=== PATIENT | male | born 1940 | race Caucasian/White ===

== ENCOUNTER 2018-05-31 16:57 | Emergency (ER) | payer OTHER, MEDICARE ==
--- NOTE | 2018-05-31 17:16 | ED Physician Documentation ---
PD HPI CHEST PAIN - Stated complaint Stated Complaint: SOA - Chief complaint Chief Complaint: Resp - History obtained from History obtained from: Patient - History of Present Illness Timing - onset: Today (This is a 78-year-old gentleman who is a 6 years out from a porcine aortic valve replacement, he is not anticoagulated. He traveled by car yesterday. Today he was inexplicably short of breath while walking up a hill. This is never happened to him before. There is no associated chest pain, pedal edema, or calf pain.) Review of Systems Ten Systems: 10 systems reviewed and negative Constitutional: denies: Fever, Chills Nose: denies: Rhinorrhea / runny nose, Congestion Cardiac: denies: Chest pain / pressure, Palpitations, Pedal edema, Calf pain Respiratory: reports: Dyspnea, Cough (mild) PD PAST MEDICAL HISTORY - Past Medical History Past Medical History: Yes Cardiovascular: Hypertension, Valve disorder (porcine aortic valve replacement 2012, ) - Present Medications Home Medications: Ambulatory Orders Medication Instructions Recorded Confirmed Levothyroxine [Synthroid] 125 mcg PO QDAC 05/31/18 05/31/18 Rosuvastatin Calcium 5 mg PO DAILY 05/31/18 05/31/18 amLODIPine [Norvasc] 5 mg PO DAILY 05/31/18 05/31/18 - Allergies Allergies/Adverse Reactions: Allergies Allergy/AdvReac Type Severity Reaction Status Date / Time Sulfa (Sulfonamide Allergy Unknown Verified 05/31/18 17:02 Antibiotics) - Living Situation Living Situation: reports: With spouse/s.o. - Social History Does the pt smoke?: No Does the pt drink ETOH?: No Does the pt have substance abuse?: No - Family History Family history: reports: Non contributory PD ED PE NORMAL - Vitals Vital signs reviewed: Yes - General General: Alert and oriented X 3, No acute distress - HEENT HEENT: Pharynx benign - Neck Neck: Supple, no meningeal sign, No bony TTP, No JVD - Cardiac Cardiac: Other (Regular but frequent extrasystoles, very loud systolic murmur, 4 out of 6 radiating up) - Respiratory Respiratory: No respiratory distress, Clear bilaterally - Abdomen Abdomen: Soft, Non tender - Back Back: No CVA TTP, No spinal TTP - Derm Derm: Normal color, Warm and dry - Extremities Extremities: No edema, No calf tenderness / cord - Neuro Neuro: Alert and oriented X 3, Normal speech Results - Vitals Vitals: Vital Signs - 24 hr 05/31/18 05/31/18 05/31/18 17:00 17:27 18:03 Temperature 36.8 C Heart Rate 58 L 70 Respiratory 20 19 Rate Blood Pressure 124/50 L 115/56 L Blood Pressure 117/58 L [Right] O2 Saturation 98 115 H 05/31/18 18:59 Temperature Heart Rate 56 L Respiratory 19 Rate Blood Pressure 117/69 Blood Pressure [Right] O2 Saturation 96 Oxygen O2 Source Room air - EKG (time done) 1711 Rate: Rate (enter#) (81) Rhythm: NSR (With frequent PACs And what frequent PVCs) [place]: Normal Intervals: Normal NE QRS: Normal Ischemia: No: ST elevation c/w ischemia Computer interpretation: Agree with computer - Labs Labs: Laboratory Tests 05/31/18 05/31/18 05/31/18 17:40 17:40 17:40 WBC 7.8 RBC 4.28 L Hgb 13.3 L Hct 38.8 L MCV 90.7 MCH 31.1 H MCHC 34.3 RDW 13.2 Plt Count 75 L MPV 11.0 Neut # (Auto) 4.6 Lymph # (Auto) 2.2 [place] # (Auto) 0.8 Eos # (Auto) 0.1 Baso # (Auto) 0.1 Absolute Nucleated RBC 0.00 Nucleated RBC % 0.1 PT 15.2 H INR 1.3 H Sodium 137 Potassium 3.7 Chloride 103 Carbon Dioxide 24 Anion Gap 10.0 BUN 18 Creatinine 0.8 Estimated GFR (MDRD) 93 Glucose 99 Calcium 9.1 Total Bilirubin 2.6 H AST 29 ALT 25 Alkaline Phosphatase 63 Troponin I B-Natriuretic Peptide Total Protein 6.6 L Albumin 3.9 Globulin 2.7 Albumin/Globulin Ratio 1.4 Lipase 25 05/31/18 05/31/18 17:40 17:40 WBC RBC Hgb Hct MCV MCH MCHC RDW Plt Count MPV Neut # (Auto) Lymph # (Auto) [place] # (Auto) Eos # (Auto) Baso # (Auto) Absolute Nucleated RBC Nucleated RBC % PT INR Sodium Potassium Chloride Carbon Dioxide Anion Gap BUN Creatinine Estimated GFR (MDRD) Glucose Calcium Total Bilirubin AST ALT Alkaline Phosphatase Troponin I < 0.04 B-Natriuretic Peptide 503 H Total Protein Albumin Globulin Albumin/Globulin Ratio Lipase - Rads (name of study) CT Chest Angio Radiology: EMP read contemporaneously (No PE, basilar interstitial opacities and trace pleural effusion suggesting mild CHF.) PD MEDICAL DECISION MAKING - ED course ED course: This is a 78-year-old gentleman who is status post remote porcine aortic valve replacement who presents with acute dyspnea on exertion today without associated clinical evidence of fluid overload on exam or chest pain. His biomarkers are negative. He is often in supraventricular bigeminy on tracing. He was evaluated for PE given recent significant car travel and this was negative but he does have small pleural effusions and very mild pulmonary edema. I discussed the case with the purchasing administrative assistant on-call for his, Dr. Palacios who recommended he call the office tomorrow and they will obtain an expedited echocardiogram. Departure - Departure Disposition: 01 Home, Self Care Clinical Impression: Mild congestive heart failure, Valvular heart disease Condition: Good Record reviewed to determine appropriate education?: Yes Comments: Eat a low-salt diet, less than 2-3 g of sodium a day. Call Dr. Palacios's office tomorrow, I spoke with his partner kailey and he agrees you need an expedited echocardiogram. His number is [phone]. Return for increasing shortness of breath or shortness of breath at rest. Or any chest pain. If you have any questions kailey my phone number is [phone].
[2018-05-31 18:02] LABS: BASOPHILS # (AUTO) 0.1 10^3/uL (0.0-0.1); BASOPHILS % (AUTO) 0.9 %; EOSINOPHILS # (AUTO) 0.1 10^3/uL (0.0-0.7); EOSINOPHILS % (AUTO) 1.3 %; HGB - HEMOGLOBIN 13.3 g/dL (14.0-18.0); LYMPHOCYTES # (AUTO) 2.2 10^3/uL (1.5-3.5); LYMPHOCYTES % (AUTO) 28.7 %; MEAN CORPUSCULAR HEMOGLOBIN 31.1 pg (27.0-31.0); MEAN CORPUSCULAR HGB CONC 34.3 g/dL (32.0-36.0); MEAN CORPUSCULAR VOLUME 90.7 fL (80.0-94.0); MONOCYTES # (AUTO) 0.8 10^3/uL (0.0-1.0); MONOCYTES % (AUTO) 10.3 %; NEUTROPHILS # (AUTO) 4.6 10^3/uL (1.5-6.6); NEUTROPHILS % (AUTO) 58.8 %; PLT - PLATELET COUNT 75 10^3/uL (130-450); RED BLOOD COUNT 4.28 10^6/uL (4.70-6.10); RED CELL DISTRIBUTION WIDTH 13.2 % (12.0-15.0); WHITE BLOOD COUNT 7.8 x10^3/uL (4.8-10.8)
[2018-05-31 18:15] LABS: INR 1.3 (0.8-1.2); PT - PROTHROMBIN TIME 15.2 secs (9.9-12.6)
[2018-05-31] MEDS ORDERED: IOVERSOL 320 100 ML VIAL IVP ONE ×2 (18:15→18:42)
[2018-05-31 18:18] LABS: ALBUMIN 3.9 g/dL (3.2-5.5); ALBUMIN/GLOBULIN RATIO 1.4 (1.0-2.2); BILIRUBIN,TOTAL 2.6 mg/dL (0.2-1.0); CALCIUM 9.1 mg/dL (8.5-10.3); CREATININE 0.8 mg/dL (0.6-1.2); TOTAL PROTEIN 6.6 g/dL (6.7-8.2)
--- NOTE | 2018-05-31 19:08 | CT Report ---
Reason: PE study, dyspnea Procedure Date: 05/31/2018 Accession Number: [id number] / [id number] Procedure: CT - ANGIO CHEST W/WO CPT Code: FULL RESULT: EXAM: CT ANGIOGRAM CHEST EXAM DATE: 05/31/2018 06:29 PM. CLINICAL HISTORY: Dyspnea. COMPARISON: None. TECHNIQUE: Routine helical imaging was performed through the chest in the pulmonary arterial phase. IV Contrast: 80 cc Optiray 320 IV. Reconstructions: Coronal 3-D MIP reconstructions.Sagittal and coronal. In accordance with CT protocol optimization, one or more of the following dose reduction techniques were utilized for this exam: automated exposure control, adjustment of mA and/or KV based on patient size, or use of iterative reconstructive technique. FINDINGS: Pulmonary Arteries: Diagnostic quality: Adequate through the segmental arteries. Negative for an acute pulmonary embolism. The main pulmonary artery is normal in size Lungs/Pleura: There are mild patchy bilateral lower lobe groundglass opacities. There is mild to moderate bilateral lower lobe interlobular septal thickening. There is peripheral atelectasis. There are trace pleural effusions. Mediastinum: There are findings of previous sternotomy and aortic valve replacement. There is no pericardial effusion. No mediastinal or hilar lymphadenopathy. Thoracic Aorta: The aorta is not yet opacified with contrast. No thoracic aortic aneurysm. Upper Abdomen: Unremarkable. Other: None. IMPRESSION: 1. Negative for acute pulmonary embolism. 2. Basilar interstitial opacities and trace pleural effusions suggesting mild CHF. RADIA
[2018-05-31 19:37] VITALS: BP 126/69
== END 2018-05-31 19:40 | disposition home or self-care (01) ==
LOC: ED 16:57
DX: I11.0 Hypertensive heart disease with heart failure (principal); I50.9 Heart failure, unspecified; I38 Endocarditis, valve unspecified; R94.31 Abnormal electrocardiogram [ECG] [EKG]; Z95.4 Presence of other heart-valve replacement
CPT/HCPCS: 36415; 71275; 80053; 83690; 83880; 84484; 85025; 85610; 93005; 99284; Q9967

== ENCOUNTER 2018-11-15 08:14 | Emergency (ER) | payer OTHER, MEDICARE ==
[2018-11-15 08:19] VITALS: BP 156/90
--- NOTE | 2018-11-15 08:36 | ED Physician Documentation ---
History of Present Illness - Stated complaint Stated Complaint: HIGH BLOOD PRESSURE - Chief complaint Chief Complaint: Cardiac - History obtained from History obtained from: Patient, Family - History of Present Illness Pain level max: 0 Pain level now: 0 Improved by: Nothing Worsened by: Nothing - Additonal information Additional information: Patient is approximately 3 to 4 months status post a TAVR. He states that for the past few mornings when he first gets up he feels slightly lightheaded. Checked his blood pressure today noted to be higher than usual. Had not taken his blood pressure medications yet today. He walks several times a day without any difficulty. No chest pain. No dyspnea. Saw his mud jack nozzle worker 3 weeks ago and had a reportedly normal appearing echocardiogram. He is currently asymptomatic. He states that they did decrease his amlodipine from 5 mg to 2.5 mg. Review of Systems Constitutional: denies: Fever, Chills Throat: denies: Sore throat Cardiac: denies: Chest pain / pressure, Palpitations Respiratory: denies: Dyspnea, Cough GI: denies: Vomiting, Diarrhea Skin: denies: Rash Musculoskeletal: denies: Neck pain, Back pain Neurologic: denies: Headache PD PAST MEDICAL HISTORY - Past Medical History Past Medical History: Yes Cardiovascular: Hypertension, Valve disorder - Past Surgical History General: Hiatal hernia repair - Present Medications Home Medications: Ambulatory Orders Medication Instructions Recorded Confirmed Levothyroxine [Synthroid] 125 mcg PO QDAC 05/31/18 05/31/18 Rosuvastatin Calcium 5 mg PO DAILY 05/31/18 05/31/18 amLODIPine [Norvasc] 5 mg PO DAILY 05/31/18 05/31/18 - Allergies Allergies/Adverse Reactions: Allergies Allergy/AdvReac Type Severity Reaction Status Date / Time Sulfa (Sulfonamide Allergy Unknown Verified 11/15/18 08:19 Antibiotics) - Social History Does the pt smoke?: No Smoking Status: Never smoker Does the pt drink ETOH?: No Does the pt have substance abuse?: No - Immunizations Immunizations are current?: Yes PD ED PE NORMAL - Vitals Vital signs reviewed: Yes - General General: Alert and oriented X 3, No acute distress, Well developed/nourished - HEENT HEENT: Moist mucous membranes - Neck Neck: Supple, no meningeal sign - Cardiac Cardiac: RRR, Other (4 out of 6 holosystolic murmur) - Respiratory Respiratory: No respiratory distress, Clear bilaterally - Abdomen Abdomen: Soft, Non tender, Non distended - Derm Derm: Warm and dry, No rash - Extremities Extremities: No edema - Neuro Neuro: Alert and oriented X 3 - Psych Psych: Normal mood, Normal affect Results - Vitals Vitals: Vital Signs - 24 hr 11/15/18 08:17 Temperature 36.4 C L Heart Rate 62 Respiratory 20 Rate Blood Pressure 156/90 H O2 Saturation 100 Oxygen O2 Source Room air - EKG (time done) 0824 Rate: Rate (enter#) (52) Rhythm: NSR Intervals: Normal MS, LBBB PD MEDICAL DECISION MAKING - ED course Complexity details: reviewed results, considered differential, d/w patient, d/w family ED course: 78-year-old male with asymptomatic hypertension today. Currently is fully asymptomatic. Has not had any chest pain, palpitations, dyspnea. Reportedly normal echocardiogram 3 weeks ago. We will have him follow-up with his doctor closely for further care. Patient counseled regarding signs and symptoms for which I believe and urgent re-evaluation would be necessary. Patient with good understanding of and agreement to plan and is comfortable going home at this time This document was made in part using voice recognition software. While efforts are made to proofread this document, sound alike and grammatical errors may occur. Departure - Departure Disposition: 01 Home, Self Care Clinical Impression: Hypertension Qualifiers: Hypertension type: unspecified Qualified Code(s): I10 - Essential (primary) hypertension Condition: Good Instructions: ED HTN Established Follow-Up: Your,doctor in 1 week [Other] Comments: Continue your medications at home. Keep a log of your blood pressures to follow-up with your doctor for further evaluation. Return if you develop chest pain, shortness of breath or any other new or worsening symptoms. Discharge Date/Time: 11/15/18 08:49
== END 2018-11-15 08:49 | disposition home or self-care (01) ==
LOC: ED 08:14
DX: I10 Essential (primary) hypertension (principal)
CPT/HCPCS: 93005; 99283; 99284

== ENCOUNTER 2022-02-02 09:57 | Emergency (ER) | payer MEDICARE, OTHER ==
--- NOTE | 2022-02-02 10:44 | XRAY Report ---
PROCEDURE: Chest 1 View X-Ray INDICATIONS: Chest pain TECHNIQUE: One view of the chest was acquired. COMPARISON: CT angiogram chest 05/31/2018 FINDINGS: Surgical changes and devices: Sternal wires. Lungs and pleura: There is an overall appearance of increased pulmonary vascularity. Mediastinum: Mediastinal contours appear normal. Heart size is enlarged. Bones and chest wall: No suspicious bony lesions. Overlying soft tissues appear unremarkable. IMPRESSION: Increased vascularity with cardiomegaly suggestive of edema. Reviewed by: Elicia Ceja MD on 02/02/2022 10:43 AM PDT Approved by: Elicia Ceja MD on 02/02/2022 10:43 AM PDT Station ID: [id number]
[2022-02-02 10:47] LABS: BASOPHILS # (AUTO) 0.1 10^3/uL (0.0-0.1); BASOPHILS % (AUTO) 0.8 %; EOSINOPHILS % (AUTO) 0.2 %; HCT - HEMATOCRIT 52.5 % (42.0-52.0); HGB - HEMOGLOBIN 17.8 g/dL (14.0-18.0); LYMPHOCYTES # (AUTO) 1.3 10^3/uL (1.5-3.5); LYMPHOCYTES % (AUTO) 10.2 %; MEAN CORPUSCULAR HGB CONC 33.9 g/dL (32.0-36.0); MEAN CORPUSCULAR VOLUME 91.5 fL (80.0-94.0); MEAN PLATELET VOLUME 12.5 fL (7.4-11.4); MONOCYTES # (AUTO) 1.4 10^3/uL (0.0-1.0); MONOCYTES % (AUTO) 10.8 %; NEUTROPHILS # (AUTO) 9.9 10^3/uL (1.5-6.6); NEUTROPHILS % (AUTO) 76.9 %; PLT - PLATELET COUNT 143 10^3/uL (130-450); RED BLOOD COUNT 5.74 10^6/uL (4.70-6.10); RED CELL DISTRIBUTION WIDTH 13.5 % (12.0-15.0); WHITE BLOOD COUNT 12.9 x10^3/uL (4.8-10.8)
[2022-02-02 11:05] LABS: ALBUMIN 3.5 g/dL (3.2-5.5); ALBUMIN/GLOBULIN RATIO 0.9 (1.0-2.2); BILIRUBIN,TOTAL 1.3 mg/dL (0.2-1.0); CALCIUM 8.8 mg/dL (8.5-10.3); POTASSIUM 3.5 mmol/L (3.5-5.0); TOTAL PROTEIN 7.4 g/dL (6.7-8.2)
[2022-02-02 11:45] LABS: B. PARAPERTUSSIS- RESP PCR PAN NOT DETECTED; B. PERTUSSIS- RESP PCR PANEL NOT DETECTED; C. PNEUMONIAE- RESP PCR PANEL NOT DETECTED; CORONAVIRUS 229E-RESP PCR NOT DETECTED; CORONAVIRUS HKU1-RESP PCR NOT DETECTED; CORONAVIRUS NL63-RESP PCR NOT DETECTED; CORONAVIRUS OC43-RESP PCR NOT DETECTED; HUMAN METAPNEUMOVIRUS NOT DETECTED; INFLUENZA A- RESP PCR PANEL NOT DETECTED; INFLUENZA B - RESP PCR PANEL NOT DETECTED; M. PNEUMONIAE- RESP PCR PANEL NOT DETECTED; PARAINFLUENZA VIRUS 1 NOT DETECTED; PARAINFLUENZA VIRUS 2 NOT DETECTED; PARAINFLUENZA VIRUS 3 NOT DETECTED; PARAINFLUENZA VIRUS 4 NOT DETECTED; RHINOVIRUS/ENTEROVIRUS DETECTED; RSV- RESP PCR PANEL NOT DETECTED; SARS-CoV-2 -RESP PCR PANEL NOT DETECTED
--- NOTE | 2022-02-02 11:58 | ED Physician Documentation ---
History of Present Illness - Stated complaint Stated Complaint: COUGH/SOA - Chief complaint Chief Complaint: Resp - Additonal information Additional information: 81-year-old male presents emergency department for evaluation of 7 to 8 days cou gh cold congestion. Symptoms began when he was in [place]. He returned home to [place] on 27 January. He states that for short period of time he was having some chest pain though none right now. He is mostly concerned by the congestion and shortness of air. Past medical history is most significant for hypertension as well as aortic valve replacement. He did have a TAVR completed in 2018. He denies any nausea or vomiting. No diaphoresis. No abdominal pain. Review of Systems Constitutional: denies: Fever, Chills Eyes: reports: Reviewed and negative Nose: reports: Rhinorrhea / runny nose, Congestion Throat: reports: Reviewed and negative Cardiac: reports: Chest pain / pressure, Reviewed and negative Respiratory: reports: Dyspnea, Cough. denies: Hemoptysis, Wheezing GI: reports: Reviewed and negative : reports: Reviewed and negative PD PAST MEDICAL HISTORY - Past Medical History Past Medical History: Yes Cardiovascular: Hypertension, Valve disorder - Past Surgical History General: Hiatal hernia repair Cardiovascular: Valve replacement - Present Medications Home Medications: Ambulatory Orders Medication Instructions Recorded Confirmed Levothyroxine [Synthroid] 125 mcg PO QDAC 05/31/18 02/02/22 Rosuvastatin Calcium 5 mg PO DAILY 05/31/18 02/02/22 amLODIPine [Norvasc] 5 mg PO DAILY 05/31/18 02/02/22 Azithromycin [Zithromax] 0 mg PO DAILY #6 tablet 02/02/22 Metoprolol Succinate [Toprol Xl] 25 mg PO BID 02/02/22 02/02/22 - Allergies Allergies/Adverse Reactions: Allergies Allergy/AdvReac Type Severity Reaction Status Date / Time Sulfa (Sulfonamide Allergy Unknown Verified 11/15/18 08:19 Antibiotics) - Social History Does the pt smoke?: No Smoking Status: Never smoker Does the pt drink ETOH?: No Does the pt have substance abuse?: No - Immunizations Immunizations are current?: Yes PD ED PE NORMAL - General General: Alert and oriented X 3, No acute distress, Well developed/nourished - HEENT HEENT: Atraumatic, Ears normal, Moist mucous membranes, Pharynx benign - Neck Neck: Supple, no meningeal sign, No adenopathy - Cardiac Cardiac: RRR. No: No murmur (Mechanical valve) - Respiratory Respiratory: No respiratory distress, Clear bilaterally (Generalized crackles) - Abdomen Abdomen: Normal bowel sounds, Soft, Non tender Results - Vitals Vitals: Vital Signs - 24 hr 02/02/22 02/02/22 02/02/22 10:08 10:47 11:17 Temperature 37.1 C Heart Rate 58 L 59 L 67 Respiratory 26 H 19 20 Rate Blood Pressure 144/65 H 167/76 H 165/75 H O2 Saturation 93 98 99 02/02/22 02/02/22 02/02/22 11:30 12:00 12:30 Temperature Heart Rate 96 98 89 Respiratory 16 23 16 Rate Blood Pressure 135/85 H 135/93 H 152/103 H O2 Saturation 96 95 97 02/02/22 13:30 Temperature Heart Rate 98 Respiratory 16 Rate Blood Pressure 127/90 H O2 Saturation 95 Oxygen O2 Source Room air - EKG (time done) 1009 Rate: Rate (enter#) (92) Rhythm: NSR Intervals: Normal AR, LBBB - Labs Labs: Laboratory Tests 02/02/22 02/02/22 02/02/22 10:17 10:39 10:39 WBC 12.9 H RBC 5.74 Hgb 17.8 Hct 52.5 H MCV 91.5 MCH 31.0 MCHC 33.9 RDW 13.5 Plt Count 143 MPV 12.5 H Neut # (Auto) 9.9 H Lymph # (Auto) 1.3 L [place] # (Auto) 1.4 H Eos # (Auto) 0.0 Baso # (Auto) 0.1 Absolute Nucleated RBC 0.00 Nucleated RBC % 0.0 Sodium 132 L Potassium 3.5 Chloride 95 L Carbon Dioxide 26 Anion Gap 11.0 BUN 26 H Creatinine 1.0 Estimated GFR (MDRD) 72 L Glucose 107 H Calcium 8.8 Total Bilirubin 1.3 H AST 49 H ALT 45 Alkaline Phosphatase 67 Troponin I High Sens B-Natriuretic Peptide Total Protein 7.4 Albumin 3.5 Globulin 3.9 Albumin/Globulin Ratio 0.9 L Lipase 27 Nasal Adenovirus (PCR) NOT DETECTED Nasal B. parapertussis DNA (PCR) NOT DETECTED Nasal Coronavir 229E PCR NOT DETECTED Nasal Coronavir HKU1 PCR NOT DETECTED Nasal Coronavir NL63 PCR NOT DETECTED Nasal Coronavir OC43 PCR NOT DETECTED Nasal Enterovir/Rhinovir PCR DETECTED A Nasal Influenza B PCR NOT DETECTED Nasal Influenza A PCR NOT DETECTED Nasal Parainfluen 1 PCR NOT DETECTED Nasal Parainfluen 2 PCR NOT DETECTED Nasal Parainfluen 3 PCR NOT DETECTED Nasal Parainfluen 4 PCR NOT DETECTED Nasal RSV (PCR) NOT DETECTED Nasal B.pertussis DNA PCR NOT DETECTED Nasal C.pneumoniae (PCR) NOT DETECTED Wilder Human Metapneumo PCR NOT DETECTED Nasal M.pneumoniae (PCR) NOT DETECTED Nasal SARS-CoV-2 (PCR) NOT DETECTED 02/02/22 02/02/22 02/02/22 10:39 10:39 12:35 WBC RBC Hgb Hct MCV MCH MCHC RDW Plt Count MPV Neut # (Auto) Lymph # (Auto) [place] # (Auto) Eos # (Auto) Baso # (Auto) Absolute Nucleated RBC Nucleated RBC % Sodium Potassium Chloride Carbon Dioxide Anion Gap BUN Creatinine Estimated GFR (MDRD) Glucose Calcium Total Bilirubin AST ALT Alkaline Phosphatase Troponin I High Sens 30.3 H* 35.9 H* B-Natriuretic Peptide 251 H Total Protein Albumin Globulin Albumin/Globulin Ratio Lipase Nasal Adenovirus (PCR) Nasal B. parapertussis DNA (PCR) Nasal Coronavir 229E PCR Nasal Coronavir HKU1 PCR Nasal Coronavir NL63 PCR Nasal Coronavir OC43 PCR Nasal Enterovir/Rhinovir PCR Nasal Influenza B PCR Nasal Influenza A PCR Nasal Parainfluen 1 PCR Nasal Parainfluen 2 PCR Nasal Parainfluen 3 PCR Nasal Parainfluen 4 PCR Nasal RSV (PCR) Nasal B.pertussis DNA PCR Nasal C.pneumoniae (PCR) Wilder Human Metapneumo PCR Nasal M.pneumoniae (PCR) Nasal SARS-CoV-2 (PCR) - Rads (name of study) cxr Radiology: Final report received (Increased vascularity with cardiomegaly suggestive of edema) PD MEDICAL DECISION MAKING - ED course Complexity details: reviewed results, re-evaluated patient, considered differential, d/w patient, d/w marketing database consultant (Dr. Olvera) ED course: 81-year-old male presents emergency department for evaluation of 8 days cough cold congestion. He does have a hoarse voice. Recently returned from [place] where he got a head cold. Respiratory PCR is test positive for enterovirus and rhinovirus. 9 this gentleman however has a history of a TAVR replacement. This was done in 2018. Here in the emergency department we did obtain a CBC and electrolytes. Most notable we do find a mild white blood cell count elevation of 12.9. Mild hyponatremia. His initial BNP is 251. This is essentially a flat static and nonconcerning BMP. First troponin was 30. Patient has reported intermittent chest pain over the last week. Second troponin was 35. Again flat and static. Chest x-ray suggested volume overload and the patient did have some mild crackles. Here in the emergency department I did give this patient some Lasix. Given the mild BNP elevation as well as the low troponin elevation I did personally speak on the phone with his catering assistant Dr. Olvera. 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 Intermittently he has had anginal-like symptoms. They have discussed replacement of the valve though it would be a very lengthy and extensive surgery and the patient is declined it at this time. Based on the discussion Dr. Olvera had with me and my presentation of the patient he feels that we can continue conservatively with the patient and discharge home. He will follow the patient up in office next week and encourages the patient to call to make that appointment. Patient is encouraged to continue to take all his usual medications. I will prescribe some azithromycin for acute bronchitis. Otherwise emergent return precautions were discussed for worsening symptoms. Departure - Departure Disposition: 01 Home, Self Care Clinical Impression: Enterovirus infection, History of transcatheter aortic valve replacement (TAVR), Elevated troponin Upper respiratory infection Qualifiers: URI type: unspecified viral URI Qualified Code(s): J06.9 - Acute upper respiratory infection, unspecified Acute bronchitis Qualifiers: Bronchitis organism: rhinovirus Qualified Code(s): J20.6 - Acute bronchitis due to rhinovirus Condition: Stable Record reviewed to determine appropriate education?: Yes Prescriptions: Azithromycin [Zithromax] 0 mg PO DAILY #6 tablet Comments: Dillon you are seen today in the emergency department because you have had a head cold now for about 8 days. You have tested positive for rhinovirus/enterovirus. This causes the common cold. You do have a lost your voice. This called pharyngitis. I suspect that you have a mild bronchitis due to this infection. To help treat this I am starting you on azithromycin. This prescription has been sent to the [facility] in [place]. Here in the emergency department we did obtain an EKG that shows a left bundle branch block. This is essentially unchanged from previous. Your troponins were mildly elevated today. I did discuss this with Dr. Olvera. He thinks this may be due to the mismatch to TAVR valve that you have. He would encourage you to call his office to arrange follow-up next week. If you find that your symptoms are worsening, you have chest pain that gets worse with exertion, you have any fainting episodes or sudden severe shortness of air then please return immediately to the ER for second evaluation.
[2022-02-02] MEDS ORDERED: FUROSEMIDE 20 MG/2 ML VIAL IVP STA (11:59)
[2022-02-02] MEDS ORDERED: METOPROLOL 5 MG/5 ML VIAL IVP STA (13:54)
[2022-02-02 15:18] VITALS: BP 124/81
== END 2022-02-02 15:27 | disposition home or self-care (01) ==
LOC: ED 09:57
DX: B34.1 Enterovirus infection, unspecified (principal); B34.8 Other viral infections of unspecified site; I10 Essential (primary) hypertension; J06.9 Acute upper respiratory infection, unspecified; J20.6 Acute bronchitis due to rhinovirus; Z86.79 Personal history of other diseases of the circulatory system; R77.8 Other specified abnormalities of plasma proteins
CPT/HCPCS: 36415; 80053; 83690; 83880; 84484; 85025; 87633; 93005; 96374; 96375; 99284

== ENCOUNTER 2023-03-19 14:21 | Emergency (ER) | payer MEDICARE, OTHER ==
--- NOTE | 2023-03-19 14:48 | ED Physician Documentation ---
PD HPI NVD - Stated complaint Stated Complaint: DIARRHEA - Chief complaint Chief Complaint: Abd Pain - History obtained from History obtained from: Patient, Family - History of Present Illness Timing - onset: How many days ago (4) Timing - duration: Days (4) Timing - details: Gradual onset, Still present Associated symptoms: Other (feels well otherwise) Contributing factors: Travel (to [facility]) Improved by: BM Worsened by: Eating Similar symptoms before: Has not had sx before Recently seen: Not recently seen - Additonal information Additional information: 82-year-old old Dillon Lafleur has recently returned from [facility]. About 2 days after returning he developed watery diarrhea. He has had watery diarrhea for 4 days now. He is not having much in the way of pain and he denies weakness or syncope. 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 He denies any parasites in the watery diarrhea and has brought in a specimen for us. Review of Systems Constitutional: denies: Fever Eyes: denies: Decreased vision Ears: denies: Ear pain Nose: denies: Congestion Throat: denies: Sore throat Cardiac: denies: Chest pain / pressure Respiratory: denies: Dyspnea, Cough GI: reports: Diarrhea. denies: Abdominal Pain, Nausea, Vomiting : denies: Dysuria, Frequency PD PAST MEDICAL HISTORY - Past Medical History Past Medical History: Yes Cardiovascular: Hypertension, Valve disorder - Past Surgical History Past Surgical History: Yes General: Hiatal hernia repair Cardiovascular: Valve replacement - Present Medications Home Medications: Ambulatory Orders Medication Instructions Recorded Confirmed Levothyroxine [Synthroid] 125 mcg PO QDAC 05/31/18 02/02/22 Rosuvastatin Calcium 5 mg PO DAILY 05/31/18 02/02/22 amLODIPine [Norvasc] 5 mg PO DAILY 05/31/18 02/02/22 Azithromycin [Zithromax] 0 mg PO DAILY #6 tablet 02/02/22 Metoprolol Succinate [Toprol Xl] 25 mg PO BID 02/02/22 02/02/22 Ciprofloxacin HCl [Cipro] 500 mg PO BID #10 tablet 03/19/23 - Allergies Allergies/Adverse Reactions: Allergies Allergy/AdvReac Type Severity Reaction Status Date / Time Sulfa (Sulfonamide Allergy Unknown Verified 03/19/23 14:33 Antibiotics) - Social History Does the pt smoke?: No Smoking Status: Never smoker Does the pt drink ETOH?: No Does the pt have substance abuse?: No - Immunizations Immunizations are current?: Yes - POLST Patient has POLST: No PD ED PE NORMAL - Vitals Vital signs reviewed: Yes (hypertensive mild ) - General General: Alert and oriented X 3, No acute distress, Well developed/nourished - HEENT HEENT: Atraumatic, PERRL, EOMI - Cardiac Cardiac: RRR, Other (2/6 holosystolic murmer at LSB) - Respiratory Respiratory: No respiratory distress, Clear bilaterally - Abdomen Abdomen: Soft, Non tender - Back Back: No CVA TTP, No spinal TTP - Derm Derm: Normal color, Warm and dry, No rash - Extremities Extremities: No deformity, No edema - Neuro Neuro: Alert and oriented X 3, 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, No motor deficit, No sensory deficit, Normal speech Eye Opening: Spontaneous Motor: Obeys Commands Verbal: Oriented GCS Score: 15 - Psych Psych: Normal mood, Normal affect Results - Vitals Vitals: Vital Signs - 24 hr 03/19/23 03/19/23 03/19/23 14:29 14:33 16:08 Temperature 37.0 C 37.0 C Heart Rate 58 L 58 L 59 L Respiratory 16 16 18 Rate Blood Pressure 133/60 H 133/60 H 140/77 H O2 Saturation 93 93 99 Oxygen O2 Source Room air - Labs Labs: Laboratory Tests 03/19/23 03/19/23 14:53 14:53 WBC 6.8 RBC 5.19 Hgb 16.5 Hct 47.8 MCV 92.1 MCH 31.8 H MCHC 34.5 RDW 13.2 Plt Count 80 L MPV 12.6 H Neut # (Auto) 4.8 Lymph # (Auto) 1.2 L Roane # (Auto) 0.8 Eos # (Auto) 0.1 Baso # (Auto) 0.0 Absolute Nucleated RBC 0.00 Nucleated RBC % 0.0 Sodium 137 Potassium 3.7 Chloride 103 Carbon Dioxide 30 Anion Gap 4.0 L BUN 20 Creatinine 1.1 Estimated GFR (MDRD) 64 L Glucose 109 H Calcium 9.4 Total Bilirubin 1.4 H AST 28 ALT 38 Alkaline Phosphatase 60 Total Protein 6.6 Albumin 4.3 Globulin 2.3 Albumin/Globulin Ratio 1.9 Lipase 21 Procedures - IVC sono (time) 1445 Bedside IVC sono: IVC measures (cm) (1.37), Euvolemia PD Medical Decision Making - ED course Complexity details: reviewed old records, reviewed results, re-evaluated patient, considered differential, d/w patient, d/w family Reviewed Lab Results: We reviewed a complete blood count showing a normal white blood cell count normal hemoglobin hematocrit. Platelets were low at 81K. the patient has had similar previously in 2019. We checked his electrolytes and found he had normal electrolytes, normal kidney and liver function. We obtained the electrolytes to be certain he did not have an issue with a low potassium after 4 days of diarrhea. The patient had normal potassium. I am uncertain what to make of the platelet count low at 81,000 the patient has had this previously it recovered. ED course: Dillon Lafleur is an 82-year-old male who recently returned from travel to [facility] and has developed what appears to be traveler's diarrhea. He is not having particularly bad pain and he has not developed any blood in his diarrhea. Today we evaluated him for electrolyte abnormality and found that he had normal electrolytes. I checked his volume at the bedside with POCUS and found he had a normal vascular volume. No specific treatment is indicated at this time with the exception of empiric antibiotic therapy for diarrhea lasting 5 days. I have E scribed Cipro for the patient and instructed him to take this if he does not have resolution of his symptoms by tomorrow. A stool PCR is pending and he will get follow-up with his primary regarding the results of this. Departure - Departure Disposition: 01 Home, Self Care Clinical Impression: Diarrhea Qualifiers: Diarrhea type: presumed infectious Qualified Code(s): R19.7 - Diarrhea, unspecified Condition: Stable Instructions: ED Diarrhea Bacterial Follow-Up: Judy Olvera MD, FACC [Physician No Access] - Prescriptions: Ciprofloxacin HCl [Cipro] 500 mg PO BID #10 tablet Comments: Dillon, today it looks like you have some travelers diarrhea and when this goes on for more than 5 days we usually treat this with "empiric" antibiotic. We are giving you a prescription for Cipro for 5 days and this has been E scribed to the [facility] in [place]. A stool specimen is being processed and results should be available in 1-3 days. Discharge Date/Time: 03/19/23 16:08
[2023-03-19 14:59] LABS: BASOPHILS % (AUTO) 0.3 %; EOSINOPHILS # (AUTO) 0.1 10^3/uL (0.0-0.7); EOSINOPHILS % (AUTO) 0.9 %; HCT - HEMATOCRIT 47.8 % (42.0-52.0); HGB - HEMOGLOBIN 16.5 g/dL (14.0-18.0); LYMPHOCYTES # (AUTO) 1.2 10^3/uL (1.5-3.5); LYMPHOCYTES % (AUTO) 17.1 %; MEAN CORPUSCULAR HEMOGLOBIN 31.8 pg (27.0-31.0); MEAN CORPUSCULAR HGB CONC 34.5 g/dL (32.0-36.0); MEAN CORPUSCULAR VOLUME 92.1 fL (80.0-94.0); MEAN PLATELET VOLUME 12.6 fL (7.4-11.4); MONOCYTES # (AUTO) 0.8 10^3/uL (0.0-1.0); MONOCYTES % (AUTO) 11.5 %; NEUTROPHILS # (AUTO) 4.8 10^3/uL (1.5-6.6); NEUTROPHILS % (AUTO) 70.1 %; PLT - PLATELET COUNT 80 10^3/uL (130-450); RED BLOOD COUNT 5.19 10^6/uL (4.70-6.10); RED CELL DISTRIBUTION WIDTH 13.2 % (12.0-15.0); WHITE BLOOD COUNT 6.8 x10^3/uL (4.8-10.8)
[2023-03-19 15:19] LABS: ALBUMIN 4.3 g/dL (3.2-5.5); ALBUMIN/GLOBULIN RATIO 1.9 (1.0-2.2); BILIRUBIN,TOTAL 1.4 mg/dL (0.2-1.0); CALCIUM 9.4 mg/dL (8.5-10.3); CREATININE 1.1 mg/dL (0.6-1.3); POTASSIUM 3.7 mmol/L (3.5-4.5); TOTAL PROTEIN 6.6 g/dL (6.4-8.9)
[2023-03-19 16:17] VITALS: BP 140/77; O2SAT 99
[2023-03-21 03:07] LABS: ADENOVIRUS F 40/41 Not Detected (Not Detected); ASTROVIRUS Not Detected (Not Detected); C DIFFICILE TOXIN A/B Not Detected (Not Detected); CAMPYLOBACTER Not Detected (Not Detected); CRYPTOSPORIDIUM Not Detected (Not Detected); CYCLOSPORA CAYETANENSIS Detected (Not Detected); ENTAMOEBA HISTOLYTICA Not Detected (Not Detected); ENTEROAGGREGATIVE E COLI Detected (Not Detected); ENTEROPATHOGENIC E COLI Detected (Not Detected); ENTEROTOXIGENIC E COLI Not Detected (Not Detected); GIARDIA LAMBLIA Not Detected (Not Detected); NOROVIRUS GI/GII Not Detected (Not Detected); PLESIOMONAS SHIGELLOIDES Not Detected (Not Detected); ROTAVIRUS A Not Detected (Not Detected); SALMONELLA Not Detected (Not Detected); SAPOVIRUS Not Detected (Not Detected); SHIGA-TOXIN-PRODUCING E COLI Not Detected (Not Detected); SHIGELLA/ENTEROINVASIVE E COLI Not Detected (Not Detected); VIBRIO Not Detected (Not Detected); VIBRIO CHOLERAE Not Detected (Not Detected); YERSINIA ENTEROCOLITICA Not Detected (Not Detected)
== END 2023-03-19 16:08 | disposition home or self-care (01) ==
LOC: ED 14:21
DX: R19.7 Diarrhea, unspecified (principal); D69.6 Thrombocytopenia, unspecified
CPT/HCPCS: 36415; 80053; 83690; 85025; 87507; 99283

== ENCOUNTER 2023-04-07 16:45 | Emergency (ER) | payer MEDICARE, OTHER ==
[2023-04-07 17:17] VITALS: BP 119/55; O2SAT 99
--- NOTE | 2023-04-07 18:01 | ED Physician Documentation ---
PD HPI ABD PAIN - Stated complaint Stated Complaint: GI - Chief complaint Chief Complaint: Abd Pain - History obtained from History obtained from: Patient - Additional information Additional information: Travel to [place] and got back early March and developed diarrhea. Seen by my partner here and a stool study was ordered. He was positive for 2 forms of E. coli, but also had a Cyclospora infection. It looks like this was not relayed to him and he completed a course of Cipro but is still having diarrhea. PD PAST MEDICAL HISTORY - Past Medical History Past Medical History: Yes Cardiovascular: Hypertension, Valve disorder - Past Surgical History Past Surgical History: Yes General: Hiatal hernia repair Cardiovascular: Valve replacement - Present Medications Home Medications: Ambulatory Orders Medication Instructions Recorded Confirmed Levothyroxine [Synthroid] 125 mcg PO QDAC 05/31/18 02/02/22 Rosuvastatin Calcium 5 mg PO DAILY 05/31/18 02/02/22 amLODIPine [Norvasc] 5 mg PO DAILY 05/31/18 02/02/22 Azithromycin [Zithromax] 0 mg PO DAILY #6 tablet 02/02/22 Metoprolol Succinate [Toprol Xl] 25 mg PO BID 02/02/22 02/02/22 Ciprofloxacin HCl [Cipro] 500 mg PO BID #10 tablet 03/19/23 metroNIDAZOLE [Flagyl] 500 mg PO BID 7 Days #14 tablet 04/07/23 - Allergies Allergies/Adverse Reactions: Allergies Allergy/AdvReac Type Severity Reaction Status Date / Time shellfish derived Allergy Anaphylaxis Verified 04/07/23 16:54 Sulfa (Sulfonamide Allergy Unknown Verified 04/07/23 16:54 Antibiotics) - Social History Does the pt smoke?: No Smoking Status: Never smoker Does the pt drink ETOH?: No Does the pt have substance abuse?: No - Immunizations Immunizations are current?: Yes - POLST Patient has POLST: No PD ED PE NORMAL - Vitals Vital signs reviewed: Yes - General General: Alert and oriented X 3, No acute distress - Abdomen Abdomen: Non tender - Neuro Neuro: Alert and oriented X 3, Normal speech Results - Vitals Vitals: Vital Signs - 24 hr 04/07/23 16:55 Temperature 36.5 C Heart Rate 55 L Respiratory 16 Rate Blood Pressure 119/55 L O2 Saturation 99 Oxygen O2 Source Room air PD Medical Decision Making - ED course ED course: He has incompletely treated diarrhea, the treatment of choice for Cyclospora is Bactrim and he does have an listed sulfa allergy. I discussed with him and the pharmacist options we could either treat him with Bactrim here and observe him to make sure he does not have a reaction versus trying Flagyl but with a higher risk of treatment failure and he would like to trial the latter. Departure - Departure Disposition: 01 Home, Self Care Clinical Impression: Cyclosporiasis Diarrhea Qualifiers: Diarrhea type: infectious Qualified Code(s): A09 - Infectious gastroenteritis and colitis, unspecified Condition: Good Record reviewed to determine appropriate education?: Yes Instructions: ED Diarrhea Bacterial Prescriptions: metroNIDAZOLE [Flagyl] 500 mg PO BID 7 Days #14 tablet Comments: As discussed, the prior stools culture showed 2 forms of E. coli but also a Cyclospora infection. The E. coli should have been eradicated by the Cipro you already took but they Cyclospora not so much. The preferred treatments for Cyclospora is Bactrim but since you have a listed sulfa allergy we are going to trial the Flagyl instead but she may need to return if not improving in a week or so. Sooner if worse. Do not drink alcohol while on the Flagyl.
[2023-04-07] MEDS ORDERED: metroNIDAZOLE 250 MG TABLET PO STA (18:02)
== END 2023-04-07 18:24 | disposition home or self-care (01) ==
LOC: ED 16:45
DX: A07.4 Cyclosporiasis (principal); Z88.2 Allergy status to sulfonamides
CPT/HCPCS: 99282; 99283; A9270

== ENCOUNTER 2023-08-14 03:36 | Outpatient (CLI) | payer MEDICARE, OTHER | END 2023-08-14 22:07 | disposition short-term general hospital (02) | LOC: EMS 03:36 | DX: R00.1 Bradycardia, unspecified (principal); I95.9 Hypotension, unspecified; R06.02 Shortness of breath; R61 Generalized hyperhidrosis; R55 Syncope and collapse | CPT/HCPCS: A0425; A0427 ==